=== PATIENT | female | born 1960 | race Caucasian/White ===

== ENCOUNTER 2018-02-04 04:36 | Emergency (ER) | payer BC ==
--- NOTE | 2018-02-04 04:55 | Emergency Department Record ---
History of Present Illness - General Chief Complaint: Shortness of breath Stated Complaint: SHORTNESS OF BREATH Time Seen by Provider: 02/04/18 04:53 Source: Patient Mode of Arrival: Ambulatory Limitations: No limitations - History of Present Illness Initial Comments: 57 yo female presents to ED for evaluation of difficulty in breathing, chest discomfort, and nonproductive cough symptoms that worsened yesterday. Patient reports a history of asthma, reports that she walked out in the cold yesterday near [facility] which worsened her symptoms. Patient denies history of DVT or heart problems, and denies lower extremity edema or calf pain symptoms. Patient is concerned that "something may be going on with my heart". Patient also report GERD that has not responded to medications as well as loose stools and anxiety this morning over the constellation of her symptoms. MD Complaint: Shortness of breath Onset/Timin -: Days(s) Radiation: Right arm ("tingling") Severity scale (1-10): 6 Consistency: Intermittent Improves With: Rest Worsens With: Exertion Known History Of: Asthma Context: Occurred during exertion Associated Symptoms: Chest pain, Cough, Orthopnia - Related Data Home Oxygen Therapy: No Home Medications Medication Instructions Recorded Confirmed Last Taken Albuterol Sulfate [Proair Hfa] 2 puff INH ASDIR 02/04/18 02/04/18 Unknown Previous Rx's Medication Instructions Recorded Albuterol Sulfate [Proair Hfa] 1 - 2 puff IH .EVERY 4-6 HOURS PRN 02/04/18 #1 inhaler Doxycycline Hyclate [Doxycycline] 100 mg PO BID #18 cap 02/04/18 Prednisone [Prednisone 20Mg] 20 mg PO TID #21 tab 02/04/18 Allergies Allergy/AdvReac Type Severity Reaction Status Date / Time No Known Drug Allergies Allergy Verified 02/04/18 04:40 Travel Screening - Travel/Exposure Within Last 30 Days Have you traveled within the last 30 days?: No - Travel/Exposure Within Last Year Have you traveled outside the [place] in the last year?: No - Additonal Travel Details Have you been exposed to anyone with a communicable illness?: No - Travel Symptoms Symptom Screening: None Review of Systems Constitutional: Denies: Chills, Fever, Malaise, Night sweats Eyes: Denies: Eye discharge, Eye pain ENT: Denies: Congestion, Ear pain, Epistaxis Respiratory: Reports: Cough, Dyspnea. Denies: Hemoptysis, Stridor Cardiovascular: Reports: Chest pain, Dyspnea on exertion. Denies: Edema, Palpitations Endocrine: Denies: Fatigue, Heat or cold intolerance Gastrointestinal: Reports: Diarrhea. Denies: Abdominal pain, Nausea, Vomiting Genitourinary: Denies: Incontinence, Retention Musculoskeletal: Denies: Arthralgia, Back pain Skin: Denies: Bruising, Change in color Neurological: Denies: Abnormal gait, Confusion, Headache, Seizure Psychiatric: Reports: Anxiety Hematological/Lymphatic: Denies: Anemia, Blood Clots Past Medical History - SOCIAL HISTORY Smoking Status: Former smoker Alcohol Use: Occasional Drug Use: None - RESPIRATORY Hx Respiratory Disorders: Yes Hx Asthma: Yes Hx Sleep Apnea: Yes (not currently treated) - CARDIOVASCULAR Hx Cardio Disorders: Yes Hx Hypertension: Yes - NEURO Hx Neuro Disorders: No - GI Hx GI Disorders: Yes Hx Nausea/Vomiting: Yes - Hx Genitourinary Disorders: No Comment:: frequent urination today - ENDOCRINE Hx Endocrine Disorders: No - MUSCULOSKELETAL Hx Musculoskeletal Disorders: Yes Hx Arthritis: Yes - PSYCH Hx Psych Problems: Yes Hx Anxiety: Yes - HEMATOLOGY/ONCOLOGY Hx Hematology/Oncology Disorders: No Family Medical History Any Significant Family History?: No Hx Cancer: Father, Mother *Cancer Comment: mother had Breast CA, father has prostate CA Hx Heart Disease: Father *Heart Comment: [place] Physical Exam - General General Appearance: Alert, Oriented x3, Cooperative, Anxious Limitations: No limitations - Head Head exam: Atraumatic, Normocephalic, Normal inspection Head exam detail: negative: Abrasion, Contusion, Foy's sign, General tenderness, Hematoma, Laceration - Eye Eye exam: Normal appearance. negative: Conjunctival injection, Periorbital swelling, Periorbital tenderness, Scleral icterus - ENT Ear exam: negative: Auricular hematoma, Auricular trauma Nasal Exam: negative: Active bleeding, Discharge, Dried blood, Foreign body Mouth exam: negative: Drooling, Laceration, Muffled voice, Tongue elevation - Neck Neck exam: Normal inspection. negative: Meningismus, Tenderness - Respiratory Respiratory exam: Normal lung sounds bilaterally. negative: Rales, Respiratory distress, Rhonchi, Stridor - Cardiovascular Cardiovascular Exam: Normal rhythm, Normal heart sounds, Tachycardia - GI/Abdominal GI/Abdominal exam: Soft. negative: Rebound, Rigid, Tenderness - Rectal Rectal exam: Deferred - exam: Deferred - Extremities Extremities exam: Normal inspection. negative: Calf tenderness, Pedal edema, Tenderness - Back Back exam: Denies: CVA tenderness (R), CVA tenderness (L) - Neurological Neurological exam: Alert, Normal gait, Oriented X3 - Psychiatric Psychiatric exam: Anxious - Skin Skin exam: Normal color. negative: Abrasion Type of lesion: negative: abrasion Course Vital Signs 02/04/18 04:41 Temperature 98.0 F Pulse Rate [ 110 H Pulse Ox Probe] Respiratory 20 Rate Blood Pressure 171/94 [Left Arm] Pulse Ox 95 - Reevaluation(s) Reevaluation #1: 02/04/18 04:53 EKG: Sinus tachycardia 112 Normal axis, normal intervals Non-specific ST-T wave changes Reevaluation #2: 02/04/18 05:50 Labs reviewed and are grossly unremarkable for an acute process. Patient is currently in CT for imaging. Reevaluation #3: 02/04/18 06:36 CTA Chest: No PE Bronchial thickening, c/w chronic bronchitis. ? mild ground glass opacities at the bases bilaterally, ? mild pneumonitis Patient was updated on all results, will treat with Prednisone and Doxycycline as directed. Patient is otherwise improved clinically and stable for discharge at this time. Medical Decision Making - Lab Data Result diagrams: 02/04/18 05:25 02/04/18 05:25 Disposition Disposition: Discharge Clinical Impression: Bronchitis Disposition: Home, Self-Care Condition: (2) Stable Instructions: Acute Bronchitis (ED) Additional Instructions: Return to ED if your symptoms worsen or if you have any concerns. Prednisone and Doxycycline as directed. Follow-up with your family doctor in 3-5 days as directed. Prescriptions: Albuterol Sulfate [Proair Hfa] 1 - 2 puff IH .EVERY 4-6 HOURS PRN #1 inhaler PRN Reason: Difficulty In Breathing Doxycycline Hyclate [Doxycycline] 100 mg PO BID #18 cap Prednisone [Prednisone 20Mg] 20 mg PO TID #21 tab Forms: Patient Portal Access Time of Disposition: 06:40 Quality - Quality Measures Quality Measures: N/A - Blood Pressure Screening Does Patient Have Any of the Following: Active Dx of HTN Blood Pressure Classification: Hypertensive Reading Systolic Measurement: 173 Diastolic Measurement: 91 Screening for High Blood Pressure: Patient Exclusion, Hx of HTN [[id number]]
[2018-02-04] MEDS ORDERED: IPRATROPIUM/ALBUTEROL (0.5MG/3MG) NEB INH ONE (04:59)
[2018-02-04] MEDS ORDERED: 0.9 % SODIUM CHLORIDE 1000ML 1,000 ML IV SCH (05:00)
[2018-02-04] MEDS ORDERED: METHYLPREDNISOLONE PF 125MG/VIAL IVP ONE (05:00)
[2018-02-04] MEDS ORDERED: MAGNESIUM HYDROXIDE/AL HYDROX 30 ML, LIDOCAINE VISC 2% 200 MG PO ONE ×2 (05:29)
[2018-02-04 05:30] LABS: BASO % 0.4 % (0-6); GRAN % 60.2 % (47-80); HEMATOCRIT 43.1 % (35.0-47.0); HEMOGLOBIN 14.2 gm/dl (11.6-16.0); MEAN CELL VOLUME 89.6 fl (81-97); MEAN CORPUSCULAR HEMOGLOBIN 29.5 pg (27-33); MEAN CORPUSCULAR HGB CONC 32.9 g/dl (32-36); MEAN PLATELET VOLUME 9.4 fl (7.4-10.4); MONO % 7.4 % (0-9); PLATELET COUNT 333 K/uL (130-400); RED BLOOD COUNT 4.81 M/uL (3.80-5.40); RED CELL DISTRIBUTION WIDTH 14.2 % (11.5-14.5); WHITE BLOOD COUNT W/O DIFF 13.6 K/uL (4.2-12.2)
[2018-02-04 05:38] LABS: BLOOD UREA NITROGEN 16 mg/dL (6-20); CREATININE 0.5 mg/dL (0.5-0.9); EST GLOMERULAR FILTRATION RATE > 60 mL/min; INFLUENZA A NEGATIVE (NEGATIVE); INFLUENZA B NEGATIVE (NEGATIVE)
[2018-02-04 05:39] LABS: TOTAL PROTEIN 6.8 g/dL (6.6-8.7)
[2018-02-04 05:41] LABS: GLUCOSE,RANDOM 130 mg/dL (74-109)
[2018-02-04 05:43] LABS: ALT/SGPT 21 U/L (<33); AST/SGOT 16 U/L (10.0-35.0)
[2018-02-04 05:44] LABS: ALB/GLOB RATIO 1.3 (1.1-1.8); ALBUMIN 3.8 g/dL (4.0-5.0); ALKALINE PHOSPHATASE 88 U/L (35-104)
== END 2018-02-04 07:01 | disposition home or self-care (01) ==
LOC: ER 04:36
DX: J20.9 Acute bronchitis, unspecified (principal); R06.02 Shortness of breath; R20.2 Paresthesia of skin; I10 Essential (primary) hypertension; F17.210 Nicotine dependence, cigarettes, uncomplicated
CPT/HCPCS: 99284 ×2; 96374; 85025; 80053; 87400; 84484; 71275; 94640; 93005; 93010; Q9967; J2930; J7030